=== PATIENT | female | born 1995 | race Caucasian/White ===

== ENCOUNTER 2017-08-28 13:12 | Emergency (ER) | payer MEDICAID ==
[~2017-08-28] VITALS: Ht 172.7 cm; Wt 65.8 kg
[2017-08-28 13:20] VITALS: BP_SYST 115
[2017-08-28] MEDS ORDERED: IBUPROFEN 800 MG TABLET PO ONE (15:30)
[2017-08-28 16:40] VITALS: BP_SYST 115
== END 2017-08-28 16:40 | disposition home or self-care (01) ==
LOC: SED 13:12
DX: T18.198A Other foreign object in esophagus causing other injury, initial encounter (principal); X58.XXXA Exposure to other specified factors, initial encounter; Y93.89 Activity, other specified; Y92.090 Kitchen in other non-institutional residence as the place of occurrence of the external cause; Y99.8 Other external cause status
CPT/HCPCS: 70360-TC; 71045; 74018; 81025; 99284